=== PATIENT | female | born 1990 | race African-American/Black ===

== ENCOUNTER 2017-06-03 18:52 | Emergency (ER) | payer OTHER, BC ==
[2017-06-03 19:05] VITALS: BP 116/72
[2017-06-03 22:04] LABS: ABS Basophils 0 10^3/ul (0-0.2); ABS Eosinophils 0.1 10^3/ul (0-0.6); ABS Lymphocytes 2.3 10^3/ul (1.0-4.8); ABS Monocytes 0.4 10^3/ul (0-0.8); ABS Neutrophils 2.6 10^3/ul (1.5-7.7); ABS Nucleated RBC 0 10^3/ul; Eosinophil % 2.1 % (0-6); Hematocrit 34 % (35-47); Hemoglobin 10.6 g/dl (12.0-16.0); Lymphocyte % 42.5 % (25-47); Mean Corpuscular HGB Conc 31 g/dl (31-36); Mean Corpuscular Hemoglobin 24 pg (27-31); Mean Corpuscular Volume 76 fL (80-97); Mean Platelet Volume 8 um3 (7.4-10.4); Nucleated Red Blood Cells % 0; Platelet Count 336 10^3/ul (150-450); Red Blood Count 4.46 10^6/ul (4.0-5.4); Red Cell Distribution Width 17 % (10.5-15); White Blood Count 5.5 10^3/ul (3.5-10.8)
[2017-06-03 22:14] LABS: INR 0.93 (0.77-1.02)
[2017-06-03 22:20] LABS: EGFR Non-African American 93.5 (>60)
--- NOTE | 2017-06-04 05:17 | ED ---
Donald Krueger Angela, scribed for Reena Gomez MD on 06/03/17 at 2203 . GI/ HPI - HPI Summary HPI Summary: This pt is a 26 y/o female presenting to [facility] [place] c/o vaginal bleeding since last night and passing a large tissue last night. Pt reports she had a control implant on May 14 (left arm) at [facility]. She states this is her first implant. Pt had a urine test prior to this implant, which was negative. Pt was told not to have sex 7 days after the implant was placed. She had sex 2 days after the implant was placed. Pt states she let her partner ejaculate inside of her. Pt notes she had cramping yesterday evening and passed a large tissue last night. She reports she had more cramping this morning but currently it has subsided. Pt notes she is currently still bleeding. Pt has never been before. She has been sexually active since she was 20 y/o and has always used the withdrawal method without any problems. LMP: March 29. Her period prior to her last was in February 27 and notes it was regular. - History of Current Complaint Chief Complaint: EDVaginalBleeding Time Seen by Provider: 06/03/17 21:50 Stated Complaint: POSS MISCARRIAGE Hx Obtained From: Patient Onset/Duration: Started Hours Ago, Still Present Timing: Lasting Days Current Severity: None Vaginal Bleeding Description: Bright Red Pain Intensity: 0 - no pain currently Associated Signs and Symptoms: Positive: Other: - passed a large tissue Aggravating Factor(s): Nothing Alleviating Factor(s): Nothing - Allergy/Home Medications Allergies/Adverse Reactions: Allergies Allergy/AdvReac Type Severity Reaction Status Date / Time No Known Allergies Allergy Verified 06/03/17 19:05 PMH/Surg Hx/FS Hx/Imm Hx Endocrine/Hematology History: Denies: Hx Diabetes Cardiovascular History: Denies: Hx Hypertension Infectious Disease History: Unable to Obtain/Confirm Infectious Disease History: Denies: Traveled Outside the [place] in Last 30 Days - Family History Known Family History: Negative: Cardiac Disease - Social History Alcohol Use: None Substance Use Type: Reports: None Smoking Status (MU): Never Smoked Tobacco Review of Systems Negative: Fever, Chills Eyes: Negative ENT: Negative Cardiovascular: Negative Negative: Abdominal Pain Genitourinary: Other - vaginal bleeding, passed large tissue Skin: Negative Neurological: Negative All Other Systems Reviewed And Are Negative: Yes Physical Exam - Summary Physical Exam Summary: VITAL SIGNS: Reviewed. GENERAL: Patient is a well-developed and nourished female who is lying comfortable in the stretcher. Patient is not in any acute respiratory distress. HEAD AND FACE: No signs of trauma. No ecchymosis, hematomas or skull depressions. No sinus tenderness. EYES: PERRLA, EOMI x 2, No injected conjunctiva, no nystagmus. EARS: Hearing grossly intact. Ear canals and tympanic membranes are within normal limits. MOUTH: Oropharynx within normal limits. NECK: Supple, trachea is midline, no adenopathy, no JVD, no carotid bruit, no c- spine tenderness, neck with full ROM. CHEST: Symmetric, no tenderness at palpation LUNGS: Clear to auscultation bilaterally. No wheezing or crackles. CVS: Regular rate and rhythm, S1 and S2 present, no murmurs or gallops appreciated. ABDOMEN: Soft, non-tender. No signs of distention. No rebound no guarding, and no masses palpated. Bowel sounds are normal. EXTREMITIES: FROM in all major joints, no edema, no cyanosis or clubbing. NEURO: Alert and oriented x 3. No acute neurological deficits. Speech is normal and follows commands. SKIN: Dry and warm Triage Information Reviewed: Yes Vital Signs On Initial Exam: Initial Vitals Temp Pulse Resp BP Pulse Ox 97.7 F 65 16 116/72 100 06/03/17 19:02 06/03/17 19:02 06/03/17 19:02 06/03/17 19:02 06/03/17 19:02 Vital Signs Reviewed: Yes Diagnostics - Vital Signs Vital Signs Temp Pulse Resp BP Pulse Ox 06/03/17 19:02 97.7 F 65 16 116/72 100 - Laboratory Result Diagrams: 06/03/17 21:52 06/03/17 21:52 Lab Statement: Any lab studies that have been ordered have been reviewed, and results considered in the medical decision making process. - Ultrasound No standard instances Ultrasound Interpretation: Positive (See Comments) - Transvaginal US IMPRESSION : There is a small amount of fluid within the endometrial cavity. Could be blood if patient is having vaginal bleeding. The endometrial complex is normal thickness at 6.4 mm. Normal bilateral follicular ovaries with positive Doppler blood flow. Small amount of fluid seen in the posterior cul-de-sac. Dr. Gomez has reviewed this radiology report. Ultrasound Interpretation Completed By: Radiologist Re-Evaluation - Re-Evaluation First Eval Re-Evaluation Time: 23:35 Comment: I reviewed the US results with the pt. GIGU Course/Dx - Course Assessment/Plan: This pt is a 26 y/o female presenting to [facility] c/o vaginal bleeding since last night and passing a large tissue last night. Pt reports she had a control implant on May 14 (left arm) at [facility]. She states this is her first implant. Pt had a urine test prior to this implant, which was negative. Pt was told not to have sex 7 days after the implant was placed. She had sex 2 days after the implant was placed. Pt states she let her partner ejaculate inside of her. Pt notes she had cramping yesterday evening and passed a large tissue last night. She reports she had more cramping this morning but currently it has subsided. Pt notes she is currently still bleeding. Tissue that came out of the pt last night is consistent with retained product of conception. Tissue will be sent to the lab for pathology. US shows: There is a small amount of fluid within the endometrial cavity. Could be blood if patient is having vaginal bleeding. The endometrial complex is normal thickness at 6.4 mm. Normal bilateral follicular ovaries with positive Doppler blood flow. Small amount of fluid seen in the posterior cul-de-sac. Pt will be discharged to home with follow up from OB. She is instructed to return to the ED for any worsening or new symptoms. - Diagnoses Provider Diagnoses: Dysfunctional uterine bleeding Discharge - Discharge Plan Condition: Stable Disposition: HOME Patient Education Materials: Dysfunctional Uterine Bleeding (ED) Referrals: [facility] - Seun FRITZ [Primary Care Provider] - Eber Dempsey MD [Medical Doctor] - 3 Days Additional Instructions: Please follow up with Dr. Dempsey, OB. RETURN TO EMERGENCY DEPARTMENT FOR ANY NEW OR WORSENING SYMPTOMS. The documentation as recorded by the Donald jaime Angela accurately reflects the service I personally performed and the decisions made by me, Reena Gomez MD.
--- NOTE | 2017-06-04 07:26 | RAD ---
INDICATION: Vaginal bleeding. COMPARISON: There are no prior studies available for comparison. TECHNIQUE: Multiple real-time transvaginal images of the pelvis were obtained. FINDINGS: The uterus is normal in size, shape and echogenicity. The uterus measured 7.1 x 3.9 x 5.0 cm. The endometrial echo measured 0.6 cm in thickness. There is a small amount of fluid in the endometrial canal. The right ovary measured 3.6 x 2.1 x 2.3 cm. The left ovary measured 2.9 x 2.0 x 2.0 cm. There is vascular flow within both ovaries. There is a small amount of free intraperitoneal fluid in the cul-de-sac. IMPRESSION: 1. SMALL AMOUNT OF FLUID WITHIN THE ENDOMETRIAL CANAL. 2. SMALL AMOUNT OF FREE INTRAPERITONEAL FLUID IN THE CUL-DE-SAC.
== END 2017-06-03 23:43 | disposition home or self-care (01) ==
LOC: ED 18:52
DX: N93.8 Other specified abnormal uterine and vaginal bleeding (principal)
CPT/HCPCS: 36415; 76830; 80053; 83605; 84702; 85025; 85610; 85730; 86850; 86900; 86901; 88305; 99282

== ENCOUNTER 2017-12-17 18:57 | Emergency (ER) | payer OTHER, BC ==
[2017-12-17 19:46] VITALS: BP 120/60
[2017-12-17] MEDS ORDERED: Tetan/Diph/Pertus SYR(Tdap)* 0.5 ML SYR(BOOSTRIX) use SYR IM ONE (20:53)
--- NOTE | 2017-12-17 21:02 | UC ---
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 PATIENT HAD SANDALS ON BUT THE NAIL MISSED THE SANDAL AND PUNCTURED THE MEDIAL PART OF HER LEFT FOOT. NOT UP-TO-DATE TETANUS. - History of Current Complaint Chief Complaint: UCWounds Time Seen by Provider: 12/17/17 20:46 Stated Complaint: STEPPED ON NAIL L FOOT Hx Obtained From: Patient Hx Last Menstrual Period: NEXPLANON Onset/Duration: Sudden Onset, Lasting Hours, Still Present Timing: Constant Onset Severity: Moderate Current Severity: Moderate Pain Intensity: 5 Pain Scale Used: 0-10 Numeric Location: Foot (Left) Character: Painful Aggravating Factor(s): Touch Alleviating Factor(s): Nothing Associated Signs & Symptoms: Positive: Tenderness - Allergy/Home Medications Allergies/Adverse Reactions: Allergies Allergy/AdvReac Type Severity Reaction Status Date / Time No Known Allergies Allergy Verified 12/17/17 19:46 Home Medications: Home Medications Cholecalciferol TAB* [Vitamin D TAB*] 12/17/17 [History] Etonogestrel [Nexplanon] 68 mg IMPLANT 12/17/17 [History] Iron 12/17/17 [History Confirmed 12/17/17] Melatonin 12/17/17 [History] Sertraline* [Zoloft*] 75 mg PO DAILY 12/17/17 [History Confirmed 12/17/17] Review of Systems Constitutional: Negative Skin: Other - PW LEFT FOOT Respiratory: Negative Cardiovascular: Negative Gastrointestinal: Negative All Other Systems Reviewed And Are Negative: Yes PMH/Surg Hx/FS Hx/Imm Hx Previously Healthy: Yes - Surgical History Surgical History: None - Family History Known Family History: Positive: Hypertension Negative: Cardiac Disease - Social History Alcohol Use: None Substance Use Type: None Smoking Status (MU): Never Smoked Tobacco - Immunization History Most Recent Tetanus Shot: UNKNOWN Physical Exam Triage Information Reviewed: Yes Appearance: Well-Appearing, No Pain Distress, Well-Nourished Vital Signs: Initial Vital Signs Temp 98.6 F 12/17/17 19:43 Pulse 86 12/17/17 19:43 Resp 16 12/17/17 19:43 BP 120/60 12/17/17 19:43 Pulse Ox 100 12/17/17 19:43 Vital Signs Reviewed: Yes Eyes: Positive: Conjunctiva Clear ENT: Positive: Hearing grossly normal Neck: Positive: Supple Respiratory: Positive: No respiratory distress, No accessory muscle use Cardiovascular: Positive: Pulses Normal Abdomen Description: Positive: Soft Musculoskeletal: Positive: ROM Intact, No Edema Neurological: Positive: Alert Psychological: Positive: Age Appropriate Behavior Skin: Positive: Other - PW PLANTAR SURFACE LEFT FOOT MEDIALLY. MILDLY TENDER Diagnostics - Radiology LEFT FOOT XRAY Xray Interpretation: No Acute Changes Radiology Interpretation Completed By: ED Physician Course/Dx - Diagnoses Provider Diagnoses: 1. PUNCTURE WOUND PLANTAR SURFACE LEFT FOOT. 2. TDAP BOOSTER Discharge - Sign-Out/Discharge Documenting (check all that apply): Patient Departure All imaging exams completed and their final reports reviewed: No - Discharge Plan Condition: Stable Disposition: HOME Prescriptions: levoFLOXacin [Levofloxacin] 500 mg PO DAILY #5 tablet Patient Education Materials: Puncture Wound (ED) Referrals: [facility] [Provider Group] - If Needed Additional Instructions: XRAY TODAY NEGATIVE FOR FRACTURE OR DISLOCATION OR FOREIGN BODY ON MY INITIAL INTERPRETATION. WE WILL CALL YOU IF RADIOLOGY READ DIFFERS. APPLY THIN LAYER ANTIBIOTIC OINTMENT UNDER BANDAGE FOR FIRST 3-4 DAYS ONLY. CHANGE BANDAGE DAILY AND NEEDED IF IT BECOMES SOILED OR WET. SEEK FOLLOW-UP IF YOU DEVELOP SPREADING REDNESS OF THE SKIN, PURULENT DRAINAGE, FEVER, INCREASED PAIN OR ANY OTHER CONCERNING SYMPTOMS. TETANUS IMMUNIZATION GIVEN (TDAP): You have been given an immunization against tetanus. Please record this in your records. In general, a booster is needed only once every 10 years. The tetanus shot protects against tetanus or "lockjaw," which is a complication of certain wound infections (the tetanus shot cannot protect against the actual infection). The immunization site may become warm and red due to local reaction. If this occurs, apply warm compresses and take aspirin or ibuprofen to reduce inflammation and discomfort. Return for evaluation if the reaction becomes severe. - Billing Disposition and Condition Condition: STABLE Disposition: Home
--- NOTE | 2017-12-18 08:05 | UC ---
- Progress Note Progress Note: IMPRESSION: #. No conspicuous foreign body. No change in plan Discharge - Sign-Out/Discharge Documenting (check all that apply): Post-Discharge Follow Up All imaging exams completed and their final reports reviewed: Yes - Discharge Plan Condition: Stable Disposition: HOME Prescriptions: levoFLOXacin [Levofloxacin] 500 mg PO DAILY #5 tablet Patient Education Materials: Puncture Wound (ED) Referrals: [facility] [Provider Group] - If Needed Additional Instructions: XRAY TODAY NEGATIVE FOR FRACTURE OR DISLOCATION OR FOREIGN BODY ON MY INITIAL INTERPRETATION. WE WILL CALL YOU IF RADIOLOGY READ DIFFERS. APPLY THIN LAYER ANTIBIOTIC OINTMENT UNDER BANDAGE FOR FIRST 3-4 DAYS ONLY. CHANGE BANDAGE DAILY AND NEEDED IF IT BECOMES SOILED OR WET. SEEK FOLLOW-UP IF YOU DEVELOP SPREADING REDNESS OF THE SKIN, PURULENT DRAINAGE, FEVER, INCREASED PAIN OR ANY OTHER CONCERNING SYMPTOMS. TETANUS IMMUNIZATION GIVEN (TDAP): You have been given an immunization against tetanus. Please record this in your records. In general, a booster is needed only once every 10 years. The tetanus shot protects against tetanus or "lockjaw," which is a complication of certain wound infections (the tetanus shot cannot protect against the actual infection). The immunization site may become warm and red due to local reaction. If this occurs, apply warm compresses and take aspirin or ibuprofen to reduce inflammation and discomfort. Return for evaluation if the reaction becomes severe. - Billing Disposition and Condition Condition: STABLE Disposition: Home
--- NOTE | 2017-12-18 09:36 | RAD ---
Indication: Stepped on a shanelle nail with the LEFT foot. Entry wound plantar aspect at level of base of first metatarsal. Comparison: No relevant prior exams available on the [facility] [place]. Technique: AP, lateral, and oblique views LEFT foot. Report: Negative for subcutaneous emphysema or conspicuous foreign body. Negative for fracture or malalignment. Os trigonum noted. IMPRESSION: #. No conspicuous foreign body.
== END 2017-12-17 21:45 | disposition home or self-care (01) ==
LOC: UCEAST 18:57
DX: S91.332A Puncture wound without foreign body, left foot, initial encounter (principal); W22.8XXA Striking against or struck by other objects, initial encounter; Y93.89 Activity, other specified; Y92.214 College as the place of occurrence of the external cause; Z21 Asymptomatic human immunodeficiency virus [HIV] infection status
CPT/HCPCS: 90471; 90715; 99212; G0463